=== PATIENT | female | born 1950 | race Caucasian/White ===

== ENCOUNTER → 2018-01-22 | Outpatient (CLI) | payer OTHER ==
--- NOTE | 2018-01-22 19:23 | Diagnostic Imaging Report ---
PROCEDURE: CT CHEST WITHOUT CONTRAST CT scan of the chest WITHOUT intravenous contrast, using standard protocol. TECHNIQUE: The chest was scanned utilizing a multidetector helical scanner from the apex to the level of the adrenal glands. No IV contrast was administered per physician's request. Coronal and sagittal multiplanar reformations were obtained. COMPARISON: None. INDICATIONS: smoker FINDINGS: Examination is limited by beam hardening artifact from right shoulder prosthesis. Lines/tubes: None. Lungs and Airways: Moderate bilateral centrilobular emphysematous changes predominantly in the upper lobes, right greater the left. Mild subpleural reticulation in the posterior and lateral bilateral lower lobes, right greater than left (for example, series 3, images 74). 2.9 x 2.2 x 2.3 cm cystic lesion in the anterior aspect of the minor fissure (series 3, image 65, and sagittal image 45). No pulmonary nodules, masses, or consolidation. Airways are clear, without endobronchial lesions. Pleura: No effusion. Heart and mediastinum: Thyroid is unremarkable. Heart size is normal. No pericardial effusion. Atherosclerotic calcification of the coronary arteries and thoracic aorta. Aorta is non-aneurysmal. Main pulmonary artery is normal in caliber. Lymph nodes: No mediastinal or axillary adenopathy. Difficult to assess for hilar adenopathy given the lack of intravenous contrast. Abdomen: Visualized portions of the spleen, pancreas, and kidneys are unremarkable. 1.0 cm in nodular lesion in the left adrenal gland has a measured density of less than 10 HU on this noncontrast exam, consistent with a benign, lipid rich adenoma. 0.8 cm fluid density simple cyst in hepatic segment VII (series 2, image 110). Bones: No aggressive lytic lesions. Soft tissues are unremarkable. IMPRESSION: 1. moderate bilateral centrilobular emphysematous changes, predominantly in the upper lobes, right greater than left. 2. Mild fibrotic changes in posterior and lateral bilateral lower lobes. 3. No pulmonary nodules, masses, or consolidation. 4. Cystic lesion in the anterior aspect of the major fissure may represent a bulla adjacent to the minor fissure and less likely an interlobar contained pneumothorax. 5. 1.0 cm benign, lipid rich left adrenal adenoma. No further diagnostic or followup imaging is indicated. Dawit Ervin M.D. Dictated by: Dawit Ervin M.D. on 01/22/2018 at 19:29 Electronically approved by: Dawit Ervin M.D. on 01/22/2018 at 19:29
== END ==
LOC: CT 12:36
PROVIDERS: ATTEND Internal Medicine Critical Care Medicine
DX: J44.9 Chronic obstructive pulmonary disease, unspecified (principal)
CPT/HCPCS: 71250

== ENCOUNTER 2022-10-10 21:20 | Emergency (ER) | payer MEDICARE, OTHER ==
[~2022-10-10] VITALS: Ht 154.9 cm; Wt 47.6 kg
[2022-10-10 22:26] LABS: BASOPHILS # (AUTO) 0.1 (0.0-0.1); EOSINOPHILS # (AUTO) 0.1 (0.0-0.4); EOSINOPHILS % 1.7 % (0.0-6.0); HEMATOCRIT 45.4 % (34.2-44.1); HEMOGLOBIN 15.2 g/dL (12.0-16.0); LYMPHOCYTES # (AUTO) 2.7 (1.0-3.2); LYMPHOCYTES % 32.7 % (18.0-39.1); MEAN CORPUSCULAR HEMOGLOBIN 32.8 pg (28-32); MEAN CORPUSCULAR HGB CONC 33.5 g/dL (31-35); MEAN CORPUSCULAR VOLUME 97.8 fL (81-99); MONOCYTES # (AUTO) 0.7 (0.2-0.8); MONOCYTES % 8.4 % (4.4-11.3); NEUTROPHILS # (AUTO) 4.7 (2.1-6.9); NEUTROPHILS % 56.1 % (38.7-80.0); PLATELET COUNT 287 x10e3/uL (140-360); RED BLOOD COUNT 4.64 x10e6/uL (3.6-5.1); RED CELL DISTRIBUTION WIDTH 13.2 % (11.7-14.4)
[2022-10-10 22:32] LABS: CLARITY,URINE CLEAR (CLEAR); COLOR,URINE YELLOW (YELLOW); KETONES,URINE NEGATIVE (NEGATIVE); LEUKOCYTE ESTERASE ,URINE NEGATIVE (NEGATIVE); NITRITE,URINE NEGATIVE (NEGATIVE); PROTEIN,URINE DIPSTICK NEGATIVE (NEGATIVE); URINE UROBILINOGEN 0.2 mg/dL (0.2 - 1)
[2022-10-10 22:34] LABS: BACTERIA,URINE FEW /HPF; EPITHELIAL CELLS,URINE FEW /LPF; WBC,URINE (MAN) 0-5 /HPF (0-5)
[2022-10-10 22:45] LABS: ALBUMIN 3.5 g/dL (3.5-5.0); ANION GAP 16.6 mmol/L (8-16); CALCIUM 9.2 mg/dL (8.4-10.2); CREATININE, SERUM 0.84 mg/dL (0.57-1.11); POTASSIUM 3.6 mmol/L (3.5-5.1)
[2022-10-11] MEDS ORDERED: IOPAMIDOL 370 MG/ML 100 ML INFUS..BTL INJ ONE (00:43)
[2022-10-11 00:50] VITALS: BP 143/92; PULSE 79; RESP 19; O2SAT 100
== END 2022-10-11 00:59 | disposition home or self-care (01) ==
LOC: ER 21:27
DX: K40.90 Unilateral inguinal hernia, without obstruction or gangrene, not specified as recurrent (principal); I10 Essential (primary) hypertension; J44.9 Chronic obstructive pulmonary disease, unspecified; Z20.822 Contact with and (suspected) exposure to COVID-19
CPT/HCPCS: 36415; 74177; 80053; 81001; 85025; 99284; Q9967; U0002